=== PATIENT | male | born 1995 | race Two or more races ===

== ENCOUNTER 2023-09-23 08:19 | Emergency (ER) | payer SELFPAY ==
[~2023-09-23] VITALS: Ht 172.7 cm; Wt 108.5 kg
[2023-09-23 08:45] VITALS: BP 131/76; PULSE 95; RESP 16; TEMP 97; O2SAT 96
[2023-09-23] MEDS ORDERED: CIPR1SUS8 OT (08:56)
== END 2023-09-23 09:01 | disposition home or self-care (01) ==
LOC: ER 08:19
DX: H93.11 Tinnitus, right ear (principal); Z79.899 Other long term (current) drug therapy